=== PATIENT | female | born 1960 | race Caucasian/White ===

== ENCOUNTER 2023-03-18 15:11 | Emergency (ER) | payer BC, SELFPAY ==
--- NOTE | ~2023-03-18 | XR_ITS ---
EXAMINATION: XR KNEE, RIGHT CLINICAL INFORMATION: Reason for Exam pain COMPARISON: None TECHNIQUE: 4 views of the knee FINDINGS: No acute fracture or dislocation. Mild degenerative changes of the knee with small patellofemoral and medial compartment osteophytes.. Small suprapatellar joint effusion. Soft tissues are unremarkable. XR/XR knee RT 4V IMPRESSION: * No acute osseous abnormality. * Mild degenerative changes of the knee. Small suprapatellar joint effusion.
[2023-03-18 15:18] VITALS: BP 141/61; PULSE 77; RESP 18; TEMP 36.6; O2SAT 96; BMI 19.8
--- NOTE | 2023-03-18 15:20 | ED_ITS ---
HPI - General Adult General Chief complaint: Extremity Injury, Lower <Gaurav Schulz - Last Filed: 03/18/23 15:21> Stated complaint: hurt knee this morning @ home <Gaurav Schulz - Last Filed: 03/18/23 15:21> Time Seen by Provider: 03/18/23 15:32 <Gaurav Schulz - Last Filed: 03/18/23 15:21> History of Present Illness HPI narrative: Patient complains of right knee pain after slipping and twisting her knee while walking the dog, she felt a pop and then knee became pain There is no other injury she did not fall down there was no head injury no neck pain no back pain no numbness no weakness no tingling <GABRIELA Gonsales - Last Filed: 03/18/23 16:30> Related Data Home medications: Home Medications Medication Instructions Recorded Confirmed albuterol sulfate 90 mcg/actuation inhalation 01/29/21 04/14/22 aerosol inhaler alendronate 70 mg tablet 70 mg PO QWEEK 01/29/21 04/14/22 estradiol 0.0375 mg/24 hr transdermal 01/29/21 04/14/22 semiweekly transdermal patch nitrofurantoin 1 cap PO BID 01/29/21 04/14/22 monohydrate/macrocrystals 100 mg capsule progesterone micronized 100 mg mg PO 01/29/21 04/14/22 capsule Previous Rx's Medication Instructions Recorded azithromycin 250 mg tablet See Rx Instructions PO .COMPLEX #6 01/29/21 tabs amoxicillin 875 mg-potassium 1 tab PO BID 5 days #10 tabs 04/14/22 clavulanate 125 mg tablet cane #1 ea 03/18/23 <Gaurav Schulz - Last Filed: 03/18/23 15:21> Allergies/adverse reactions: Allergies Allergy/AdvReac Type Severity Reaction Status Date / Time ibuprofen [From MOTRIN] Allergy Severe ANAPHYLAXIS Verified 03/18/23 15:18 sulfamethoxazole Allergy Mild Vomiting Verified 03/18/23 15:18 [From Bactrim] trimethoprim [From Bactrim] Allergy Mild Vomiting Verified 03/18/23 15:18 <Gaurav Schulz - Last Filed: 03/18/23 15:21> PMFSH Past Medical History Source: nursing notes reviewed <GABRIELA Gonsales - Last Filed: 03/18/23 16:30> Social History Social History: Social History Advance Directives: No Advance Directives Information Provided: No <Gaurav Schulz - Last Filed: 03/18/23 15:21> Physical Exam ED Vital Signs: Vital Signs - 24 hr 03/18/23 15:18 Temperature 97.8 F Pulse Rate 77 Respiratory Rate 18 Blood Pressure 141/61 H Pulse Oximetry 96 Oxygen Delivery Method Room Air BMI result Body Mass Index 19.8 <Gaurav Schulz - Last Filed: 03/18/23 15:21> Vital Signs - 24 hr 03/18/23 15:18 Temperature 97.8 F Pulse Rate 77 Respiratory Rate 18 Blood Pressure 141/61 H Pulse Oximetry 96 Oxygen Delivery Method Room Air BMI result Body Mass Index 19.8 <GABRIELA Gonsales - Last Filed: 03/18/23 16:30> General appearance no distress Head is normocephalic atraumatic Neck is supple nontender The back full range of motion Respiratory no distress Extremities the right knee had lateral joint line tenderness as well as posterior tenderness, there was no obvious swelling, it extends to 180, straight leg raising is intact, no obvious ligamentous laxity, skin was normal and int act, neurovascular intact distal Other extremities normal <GABRIELA Gonsales - Last Filed: 03/18/23 16:30> Course Course Course Narrative: 63 year old female presents for evaluation of right knee pain. She was walking her dog when she believes she stepped in a hole and twisted the right knee. She remains independently ambulatory. X-ry of the right knee ordered. <Gaurav Schulz - Last Filed: 03/18/23 15:21> 63 year old female presents for evaluation of right knee pain. She was walking her dog when she believes she stepped in a hole and twisted the right knee. She remains independently ambulatory. X-ry of the right knee ordered. X-ray showed a small suprapatellar effusion as well as some evidence of osteoarthritis, no acute bony injury Patient was ambulatory with a limp and will follow with orthopedics as needed and was discharged diagnosis right knee sprain <GABRIELA Gonsales Last Filed: 03/18/23 16:30> Discharge Plan Discharge Clinical Impression: Right knee sprain <Gaurav Schulz - Last Filed: 03/18/23 15:21> Patient Disposition: Home, Self-Care <Gaurav Schulz - Last Filed: 03/18/23 15:21> Additional Instructions: X-ray did not show a broken bone It did show a little water on the knee and a little arthritis Follow with orthopedist for further evaluation It is possible you may have damaged cartilage or are muscle in the back of the leg This will often go back to baseline but if you are having continuing problems the orthopedist will evaluated further Return any time any worse condition or any concerns <Gaurav Schulz - Last Filed: 03/18/23 15:21> Prescriptions: New (DME) cane Device See Rx Instructions .Route Qty: 1 0RF Rx Instructions: As directed No Action progesterone micronized 100 mg capsule PO estradiol 0.0375 mg/24 hr patch semiweekly transdermal albuterol sulfate 90 mcg/actuation HFA aerosol inhaler inhalation alendronate 70 mg tablet 70 mg PO QWEEK nitrofurantoin monohyd/m-cryst 100 mg capsule 1 cap PO BID azithromycin 250 mg tablet See Rx Instructions PO .COMPLEX Qty: 6 0RF Rx Instructions: take 500 mg today (day 1), then 250 mg for 4 days (days 2-5) PO amoxicillin-pot clavulanate 875-125 mg tablet 1 tab PO BID 5 Days Qty: 10 0RF <Gaurav Schulz - Last Filed: 03/18/23 15:21> Referrals: Quentin Quan MD [Physician] - (Right knee sprain) <Gaurav Schulz - Last Filed: 03/18/23 15:21> Stand Alone Forms: Work/School Release <Gaurav Schulz - Last Filed: 03/18/23 15:21>
--- NOTE | 2023-03-18 15:26 | PC.NURSE ---
pt ambulatory to exam room. pt has knee brace on right knee, sts that pain is currently 8/10. no prior surgical history to knee
== END 2023-03-18 16:33 | disposition home or self-care (01) ==
PROVIDERS: Emergency Provider Emergency Medicine; PCP Nurse Practitioner Family
DX: S83.91XA Sprain of unspecified site of right knee, initial encounter (principal); X50.1XXA Overexertion from prolonged static or awkward postures, initial encounter; M25.461 Effusion, right knee; Y93.K1 Activity, walking an animal; Y92.480 Sidewalk as the place of occurrence of the external cause; Y99.9 Unspecified external cause status
CPT/HCPCS: 73564; 99283

== ENCOUNTER 2023-04-06 08:42 | Outpatient (REF) | payer BC, MEDICARE, SELFPAY ==
--- NOTE | ~2023-04-06 | XR_ITS ---
EXAMINATION: XR KNEE AP STANDING XR KNEE, RIGHT CLINICAL INFORMATION: Pain. COMPARISON: Right knee radiographs dated 03/18/2023. TECHNIQUE: AP bilateral standing view of the knees was obtained. Axial view of the right knee. FINDINGS: Bones and soft tissues are normal. No fracture or joint effusion. Alignment is anatomic. No significant varus or valgus configuration is seen bilaterally. Joint spaces are well maintained. No abnormal soft tissue calcification. XR/XR knee RT 1V IMPRESSION: Normal AP bilateral knees and right axial radiographs.
--- NOTE | ~2023-04-06 | XR_ITS ---
EXAMINATION: XR KNEE AP STANDING XR KNEE, RIGHT CLINICAL INFORMATION: Pain. COMPARISON: Right knee radiographs dated 03/18/2023. TECHNIQUE: AP bilateral standing view of the knees was obtained. Axial view of the right knee. FINDINGS: Bones and soft tissues are normal. No fracture or joint effusion. Alignment is anatomic. No significant varus or valgus configuration is seen bilaterally. Joint spaces are well maintained. No abnormal soft tissue calcification. XR/XR knee standing BI IMPRESSION: Normal AP bilateral knees and right axial radiographs.
== END 2023-04-06 08:43 | disposition home or self-care (01) ==
LOC: HO.HOSX 08:42
PROVIDERS: PCP Nurse Practitioner Family; Visit Provider Physician Assistant
DX: S83.001A Unspecified subluxation of right patella, initial encounter (principal); S86.111A Strain of other muscle(s) and tendon(s) of posterior muscle group at lower leg level, right leg, initial encounter; M17.11 Unilateral primary osteoarthritis, right knee
CPT/HCPCS: 73560; 73565

== ENCOUNTER → 2023-04-20 08:37 | Outpatient (BNVA) | payer OTHER, SELFPAY | PROVIDERS: PCP Nurse Practitioner Family; Visit Provider Physician Assistant | DX: S93.432A Sprain of tibiofibular ligament of left ankle, initial encounter (principal); W01.0XXA Fall on same level from slipping, tripping and stumbling without subsequent striking against object, initial encounter | CPT/HCPCS: 73610; 73630; 99204 ==

== ENCOUNTER → 2023-04-25 13:06 | Outpatient (BNVA) | payer OTHER, SELFPAY | PROVIDERS: PCP Nurse Practitioner Family; Visit Provider Internal Medicine | DX: S93.432A Sprain of tibiofibular ligament of left ankle, initial encounter (principal); W01.0XXA Fall on same level from slipping, tripping and stumbling without subsequent striking against object, initial encounter | CPT/HCPCS: 99213 ==

== ENCOUNTER → 2023-05-04 14:27 | Outpatient (BNVA) | payer OTHER, SELFPAY | PROVIDERS: PCP Nurse Practitioner Family; Visit Provider Internal Medicine | DX: S93.492D Sprain of other ligament of left ankle, subsequent encounter (principal); W01.0XXD Fall on same level from slipping, tripping and stumbling without subsequent striking against object, subsequent encounter | CPT/HCPCS: 99213 ==

== ENCOUNTER → 2023-05-18 08:00 | Outpatient (BNVA) | payer OTHER, SELFPAY | PROVIDERS: PCP Nurse Practitioner Family; Visit Provider Internal Medicine | DX: S93.432D Sprain of tibiofibular ligament of left ankle, subsequent encounter (principal); W01.0XXD Fall on same level from slipping, tripping and stumbling without subsequent striking against object, subsequent encounter | CPT/HCPCS: 99213 ==

== ENCOUNTER → 2023-06-05 08:00 | Outpatient (BNVA) | payer OTHER, SELFPAY | PROVIDERS: PCP Nurse Practitioner Family; Visit Provider Internal Medicine | DX: S93.432D Sprain of tibiofibular ligament of left ankle, subsequent encounter (principal); W01.0XXD Fall on same level from slipping, tripping and stumbling without subsequent striking against object, subsequent encounter | CPT/HCPCS: 99213 ==

== ENCOUNTER 2023-06-22 08:42 | Outpatient (AMB) | payer OTHER, BC, SELFPAY ==
[2023-06-22 08:45] VITALS: BMI 19.9
--- NOTE | 2023-06-22 08:45 | A.OFFVIS_ITS ---
Intake Vital Signs 06/22/23 08:45 Height 5 ft 6 in Weight 123 lb BMI 19.9 Intake Visit Reasons: New Prob - Left ankle sprain Intake Note: Imani is a 63 year old female who presents today for a evaluation for her left ankle pain, DOI 04/20/23. Patient reports slipped on water and rolled her ankle. She states her ankle is sore after physical therapy. ROM is limited per patient. Denies numbness and tingling. Allergies ibuprofen [From MOTRIN] Allergy (Severe, Verified 06/22/23 08:48) ANAPHYLAXIS sulfamethoxazole [From Bactrim] Allergy (Mild, Verified 06/22/23 08:48) Vomiting trimethoprim [From Bactrim] Allergy (Mild, Verified 06/22/23 08:48) Vomiting HPI New Prob - Left ankle sprain HPI Details 63-year-old female who presents in the office today, as a new patient, for an evaluation of left ankle pain. The patient reports on 04/20/2023 she slipped on water and roller her ankle with at school. She confirms ecchymosis. She reports she was seen at [facility] and was told she has a sprain. She confirms participating in physical therapy and states this makes her ankle sore after. She claims her ROM is limited. She denies numbness or tingling. She states her ankle does better with the [facility] velcro ankle brace. She states she is unable to kneel down or get back up due to pain in the ankle. Patient confirms an allergy to ibuprofen. She goes into anaphylaxis. 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 Review of Systems Const All systems reviewed & are unremarkable except as noted in HPI and below Physical Exam Vital Signs: BMI result Body Mass Index 19.9 Const General: cooperative, healthy appearing, comfortable, no acute distress, well developed and alert Orientation/consciousness: patient oriented x3 HEENT Head: Yes normal to inspection, Yes normocephalic and Yes atraumatic Eyes General: appearance normal, both eyes and all related structures Resp Effort & Inspection: normal respiratory effort and able to speak in complete sentences Cardio Rate: regular rate Peripheral pulses: Peripheral pulses 2+ throughout GI Palpation (GI): Soft to palpation Skin Lesions: no lesions Rashes: no rashes Neuro General: patient oriented x3 Extrem Other: Left ankle: Tenderness to palpation along the peroneal tendons. Minimal tenderness to palpation over the tibial tendons. Full ROM dorsiflexion, plantarflexion, inversion, and eversion. Sensation intact. Pedal pulse intact. Assessment & Plan Assessment & Plan (1) Left ankle sprain: Comment: Grade 2 Code(s): S93.402A - Sprain of unspecified ligament of left ankle, initial encounter Plan Ms. Robbins is a 63-year-old female who presents in the office today, as a new patient, for an evaluation of left ankle pain. The patient reports on 04/20/2023 she slipped on water and roller her ankle with at school. She confirms ecchymosis. She reports she was seen at [facility] and was told she has a sprain. She confirms participating in physical therapy and states this makes her ankle sore after. She claims her ROM is limited. She denies numbness or tingling. She states her ankle does better with the [facility] velcro ankle brace. She states she is unable to kneel down or get back up due to pain in the ankle. Patient confirms an allergy to ibuprofen. She goes into anaphylaxis. 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 I discussed the timeline for healing the ankle. She may return to activities as tolerated, using pain as her guide. If her ankle is swelling or hurting she needs to ice and elevate the ankle. She should continue to attend physical therapy for her remaining 3 weeks and to wear the brace. Follow up will be PRN, or sooner if needed. Reviewed x-rays from 04/20/2023 revealed no acute fractures or dislocation. Patient Instructions: Scribed for Daisy Montes De Oca PA-C by Bebe Madrigal certified medical assistant, on 06/22/2023 at 8:51 am, EST. Your attestation Coding Level of Care Code Est Pt Level 3 (62276) Diagnoses Left ankle sprain S93.402A
== END 2023-06-22 09:39 | disposition home or self-care (01) ==
PROVIDERS: PCP Nurse Practitioner Family; Visit Provider Physician Assistant
DX: S93.402A Sprain of unspecified ligament of left ankle, initial encounter (principal)
CPT/HCPCS: 99213

== ENCOUNTER → 2023-06-22 08:42 | Outpatient (BNVA) | payer OTHER, BC, SELFPAY | PROVIDERS: PCP Nurse Practitioner Family; Visit Provider Physician Assistant | DX: S93.402A Sprain of unspecified ligament of left ankle, initial encounter (principal); X58.XXXA Exposure to other specified factors, initial encounter; Y93.9 Activity, unspecified; Y92.9 Unspecified place or not applicable; Y99.9 Unspecified external cause status | CPT/HCPCS: 99212 ==

== ENCOUNTER → 2023-06-27 08:05 | Outpatient (BNVA) | payer OTHER, SELFPAY | PROVIDERS: PCP Nurse Practitioner Family; Visit Provider Internal Medicine | DX: S93.432D Sprain of tibiofibular ligament of left ankle, subsequent encounter (principal); W01.0XXD Fall on same level from slipping, tripping and stumbling without subsequent striking against object, subsequent encounter | CPT/HCPCS: 99213 ==

== ENCOUNTER → 2023-07-14 10:13 | Outpatient (BNVA) | payer OTHER, SELFPAY | PROVIDERS: PCP Nurse Practitioner Family; Visit Provider Physician Assistant Medical | DX: S93.402D Sprain of unspecified ligament of left ankle, subsequent encounter (principal); W01.0XXD Fall on same level from slipping, tripping and stumbling without subsequent striking against object, subsequent encounter | CPT/HCPCS: 99213 ==

== ENCOUNTER 2023-08-07 15:13 | Outpatient (AMB) | payer BC, SELFPAY ==
[2023-08-07 16:05] VITALS: BMI 21.0
--- NOTE | 2023-08-07 16:05 | AM.OFFWIN_ITS ---
Intake Vital Signs 08/07/23 16:05 08/07/23 16:08 Height 5 ft 6 in 5 ft 6 in Weight 130 lb 130 lb BMI 21.0 21.0 BP 135/75 Blood Pressure Location Lt brachial Position Sitting Pulse 78 Pulse Source Pulse Oximeter Temp 97.4 F Temp Source Temporal Artery Scan Pulse Oximetry (%) 96 Oxygen Delivery Method Room Air Intake Visit Reasons: EP Fell-Face injury Patient Tobacco Use Status: Never used Tobacco Allergies ibuprofen [From MOTRIN] Allergy (Severe, Verified 08/07/23 16:06) ANAPHYLAXIS sulfamethoxazole [From Bactrim] Allergy (Mild, Verified 08/07/23 16:06) Vomiting trimethoprim [From Bactrim] Allergy (Mild, Verified 08/07/23 16:06) Vomiting Medication List - Last Reconciled 08/07/23 by Shiraz Eckert MD albuterol sulfate 90 mcg/actuation inhalation alendronate 70 mg PO QWEEK Do you need a note to return to daycare/school/sports/work: Yes HPI EP Fell-Face injury HPI Details 63-year-old female presents to the [facility] for a sick visit. All taking the trash can out, patient accidentally tripped and fell on the handle of the can. Patient started bleeding profusely from the nose. The bleeding stopped in about 15 minutes. She presents for an evaluation. No loss of consciousness. No fevers or chills. 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 In both nostrils there is evidence of bleeding. The bridge of the nose is not tender. Head: Yes normal to inspection Eyes General: appearance normal, both eyes and all related structures Neck Neck: Yes normal visual inspection Chest Chest palpation & inspection: normal palpation of entire chest wall Resp Effort & Inspection: normal respiratory effort Neuro General: patient oriented x3 Assessment & Plan Assessment & Plan (1) Contusion, nose: Code(s): S00.33XA - Contusion of nose, initial encounter Qualifiers: Encounter type: initial encounter Qualified Code(s): S00.33XA - Contusion of nose, initial encounter Plan: X-ray images were personally reviewed by me. No fractures seen. Reassurance. Orders: Orders XR nasal bones min 3V Today S00.33XA - Contusion of nose, initial encounter Coding Level of Care Code Est Pt Level 4 (16503) Diagnoses Contusion of nose, initial encounter S00.33XA Encounter type: initial encounter
[2023-08-07 16:08] VITALS: BP 135/75; PULSE 78; TEMP 36.3; O2SAT 96; BMI 21.0
== END 2023-08-07 17:14 | disposition home or self-care (01) ==
PROVIDERS: PCP Nurse Practitioner Family; Visit Provider Internal Medicine
DX: S00.33XA Contusion of nose, initial encounter (principal)
CPT/HCPCS: 99214

== ENCOUNTER 2023-08-07 16:18 | Outpatient (REF) | payer BC, SELFPAY ==
--- NOTE | ~2023-08-07 | XR_ITS ---
EXAMINATION: XR NASAL BONES CLINICAL INFORMATION: Nasal contusion COMPARISON: None available. TECHNIQUE: 3 views of the nasal bones were obtained. FINDINGS: There are no fractures. Visualized paranasal sinuses appear unremarkable without air-fluid levels. No bone, joint or soft tissue abnormality is demonstrated. XR/XR nasal bones min 3V IMPRESSION: Unremarkable examination.
== END 2023-08-07 16:19 | disposition home or self-care (01) ==
LOC: HO.HMGCX 16:18
PROVIDERS: PCP Nurse Practitioner Family; Visit Provider Internal Medicine
DX: S00.33XA Contusion of nose, initial encounter (principal); X58.XXXA Exposure to other specified factors, initial encounter; Y93.9 Activity, unspecified; Y92.9 Unspecified place or not applicable; Y99.9 Unspecified external cause status
CPT/HCPCS: 70160

== ENCOUNTER 2023-11-06 15:03 | Outpatient (AMB) | payer BC, SELFPAY ==
--- NOTE | 2023-11-06 15:19 | MHC.OFFWIV ---
Intake Vital Signs 11/06/23 15:20 Height 5 ft 6 in Weight 59.421 kg BMI 21.1 BP 126/80 Blood Pressure Location Rt brachial Position Sitting Pulse 90 Pulse Source Pulse Oximeter Temp 97.8 F Temp Source Temporal Artery Scan Pulse Oximetry (%) 98 Oxygen Delivery Method Room Air Intake Visit Reasons: EST/head aches shortness of breath/lobby masked Intake Note: ptis here today for head aches, shortness of breath started thanksgiving Patient Tobacco Use Status: Never used Tobacco Allergies ibuprofen [From MOTRIN] Allergy (Severe, Verified 11/06/23 15:20) ANAPHYLAXIS sulfamethoxazole [From Bactrim] Allergy (Mild, Verified 11/06/23 15:20) Vomiting trimethoprim [From Bactrim] Allergy (Mild, Verified 11/06/23 15:20) Vomiting Do you need a note to return to daycare/school/sports/work: Yes HPI HPI Comments History of Present Illness Details 31-year-old who presents with fatigue, malaise, myalgias, cough, shortness of breath, headaches,, subjective fevers and chills that started about 2-3 weeks ago .? No known sick contacts.? Denies chest pain, shortness of breath, nausea, vomiting, abdominal pain, headache vision change, dizziness, weakness, changes in bowel or urinary habits Physical exam benign History and physical exam concerning for viral illness versus bronchitis ( most likely) versus flu versus COVID versus RSV.? Unlikely pneumonia, ACS, dissection, pulmonary embolism, acute respiratory distress. Unlikely meningitis, encephalitis, intracranial hemorrhage, stroke or posterior stroke I do not suspect acute CHF. Plan at this time viral testing will discharge patient home with albuterol, atbx, prednison. .? Educated patient on diagnosis and treatment plan, answered all question, patient verbalizes understanding.? At this time patient will be discharged home, advised to return with new or worsening symptoms.? Educated on worrisome signs and symptoms and when to return.? At this time I feel comfortable discharge home. 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 Review of Systems Const Details: Constitutional : No Weight loss, + Fever, + Chills, + Fatigue, + Malaise ENT/Mouth : No sore throat, No Rhinorrhea Eyes: No Eye Pain, No Swelling, No Redness Cardiovascular : No Chest Pain, No SOB, No Dyspnea on Exertion, No Orthopnea, No Edema, No Palpitations Respiratory : + Cough, No Sputum, No Wheezing Gastrointestinal : No Nausea, No Vomiting, No Diarrhea, No Constipation, No abdominal Pain, No Hematochezia, No Melena Genitourinary : No Dysuria, No Urinary Frequency, No Hematuria, Musculoskeletal : No joint pain, No Myalgias, No Joint Swelling Skin : No Skin Lesions, No rash Neuro : No Weakness, No Numbness, No Dizziness, + Headache Psych : No Anxiety/Panic, No Depression All other systems reviewed and are negative All systems reviewed & are unremarkable except as noted in HPI and below Physical Exam Vital Signs: Last Vital Signs Temp 97.8 F 11/06/23 15:20 Pulse 90 11/06/23 15:20 BP 126/80 11/06/23 15:20 Pulse Ox 98 11/06/23 15:20 Oxygen Delivery Method Room Air 11/06/23 15:20 BMI result Body Mass Index 21.1 vss Appearance: Alert.? Oriented X3.? No acute distress.? Head: Normocephalic, atraumatic, no step-offs or deformities Eyes: Pupils equal, round and reactive to light.? CVS: Normal heart rate and rhythm.? Pulses normal.? Respiratory: No respiratory distress.? Breath sounds normal.? Abdomen: Soft and nontender.? Skin: Skin warm and dry.? Normal skin color.? Normal skin turgor.? Extremities: No lower extremity edema.? No calf ttp. 5/5 strength to bilateral upper and lower extremities Neuro: Oriented X 3.? No motor deficit.? No sensory deficit. CN 2-12 intact Assessment & Plan Assessment & Plan (1) Bronchitis: Code(s): J40 - Bronchitis, not specified as acute or chronic Plan Take your medications as prescribed. If you were prescribed antibiotics today, it is important that you take your medication to their entirety, do not skip any doses, do not finish them early. Follow-up with your primary care provider this week. Return to the emergency department with new or worsening symptoms. Such as fevers, chills, chest pain, shortness of breath, nausea, vomiting, dizziness, headache, vision changes, lethargy In case of emergency call 911 Orders: Orders SARS-CoV2/FLU/RSV Today B34.9 - Viral infection, unspecified Medications: New doxycycline hyclate 100 mg PO BID 14 caps 0RF 7 days albuterol sulfate 90 mcg/actuation 2 puffs inhalation Q6H PRN 6.7 grams 0RF shortness of breath or wheezing prednisone 20 mg PO DAILY 5 tabs 0RF 5 days Coding Level of Care Code Est Pt Level 3 (29348) Diagnoses Bronchitis J40
[2023-11-06 15:20] VITALS: BP 126/80; PULSE 90; TEMP 36.6; O2SAT 98; BMI 21.1
== END 2023-11-06 15:38 | disposition home or self-care (01) ==
PROVIDERS: PCP Nurse Practitioner Family; Visit Provider Physician Assistant
DX: J40 Bronchitis, not specified as acute or chronic (principal)
CPT/HCPCS: 99213

== ENCOUNTER 2023-11-06 15:46 | Outpatient (REF) | payer BC, SELFPAY ==
[2023-11-07 12:28] LABS: Influenza A PCR NEGATIVE (Negative); Influenza B PCR NEGATIVE (Negative); Resp Syncy Virus RNA Qual PCR NEGATIVE (Negative); SARS COV2 PCR INHOUSE NEGATIVE (Negative)
== END 2023-11-06 15:47 | disposition home or self-care (01) ==
LOC: HO.LAB 15:46
PROVIDERS: Visit Provider Physician Assistant
DX: Z11.52 Encounter for screening for COVID-19 (principal); Z20.822 Contact with and (suspected) exposure to COVID-19; B34.9 Viral infection, unspecified
CPT/HCPCS: 0241U

== ENCOUNTER 2024-01-02 09:25 | Outpatient (AMB) | payer BC, SELFPAY ==
--- NOTE | 2024-01-02 10:50 | MHC.OFFWIV ---
Intake Vital Signs 01/02/24 10:52 Height 5 ft 6 in Weight 133 lb 4 oz BMI 21.5 BP 132/74 Blood Pressure Location Rt brachial Position Sitting Pulse 97 Pulse Source Pulse Oximeter Temp 97.6 F Temp Source Oral Pulse Oximetry (%) 100 Oxygen Delivery Method Room Air Intake Visit Reasons: EP fever chills body rash [id number] Intake Note: Pt is here c/o post covid symptoms. Pt test positive 12/22/23, since then pt was better but has now developed fevers, shivers, on going cough and a rash. Pt states the rash has gone away but the cough is the same. Patient Tobacco Use Status: Never used Tobacco Allergies ibuprofen [From MOTRIN] Allergy (Severe, Verified 01/05/24 16:05) ANAPHYLAXIS sulfamethoxazole [From Bactrim] Allergy (Mild, Verified 01/05/24 16:05) Vomiting trimethoprim [From Bactrim] Allergy (Mild, Verified 01/05/24 16:05) Vomiting Medication List - Last Reconciled 01/05/24 by Shiraz Eckert MD albuterol sulfate 90 mcg/actuation inhalation albuterol sulfate 90 mcg/actuation 2 puffs inhalation Q6H PRN alendronate 70 mg PO QWEEK benzonatate 100 mg PO BID-TID PRN prednisone 20 mg PO BID Do you need a note to return to daycare/school/sports/work: Yes HPI EP fever chills body rash [id number] HPI Details Patient presents for a sick visit. Reporting symptoms of sinus congestion, sore throat and difficulty swallowing. Low-grade fever. No family member is sick. No recent travel. Patient reports symptoms of malaise and fatigue. HPI Comments History of Present Illness Details Patient is a 63-year-old female in today for a sick visit. She states that she tested positive for COVID 2 weeks ago. She reports intermittent fever and chills, cough, sore throat, chest congestion. She states that the fever and chills have resided however the cough and chest congestion remain. She has used wdvk-str-fgejhoy medicine with little effect. 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 Denies nausea, vomiting, diarrhea, chest pain, shortness a breath, dyspnea on exertion. 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 Oriented X3.? No acute distress.? Head: Normocephalic, atraumatic, Eyes: Pupils equal, round and reactive to light.? ENT: Pharynx erythema.?TM intact and pearly medina. Neck: Normal inspection.? Neck supple.?Full ROM. CVS: Normal heart rate and rhythm.? Pulses normal.? Respiratory: No respiratory distress.? Slight wheeze upper lobes bialterally. Neuro: Oriented X 3.? No motor deficit.? No sensory deficit. CN 2-12 intact General: cooperative and healthy appearing Nutritional Appearance: well nourished Orientation/consciousness: patient oriented x3 Limitations: no limitations HEENT Head: Yes normal to inspection Eyes General: appearance normal, both eyes and all related structures Neck Neck: Yes normal visual inspection Chest Chest palpation & inspection: normal palpation of entire chest wall Resp Effort & Inspection: normal respiratory effort Neuro General: patient oriented x3 Assessment & Plan Assessment & Plan (1) Upper respiratory infection: Comment: Will obtain upper respiratory swab. Will give patient prednisone and benzonatate to be taken as directed. Patient has been educated on signs of worsening symptoms when to report back to the walk-in or when to present to the ED. Patient states she understands. Code(s): J06.9 - Acute upper respiratory infection, unspecified Qualifiers: URI type: unspecified URI Qualified Code(s): J06.9 - Acute upper respiratory infection, unspecified Plan: Increase fluid intake. Tylenol for aches and pains. If symptoms worsen, follow-up here for a recheck. Plan Follow-up with PCP. Orders: Orders SARS-CoV2/FLU/RSV 01/02/24 J06.9 - Acute upper respiratory infection, unspecified Complete Blood Count Auto Diff 01/02/24 Z13.0 - Encounter for screening for diseases of the blood and blood-forming organs and certain disorders involving the immune mechanism XR chest 2V 01/02/24 R05.9 - Cough, unspecified Comprehensive Met. Panel 01/02/24 Z91.89 - Other specified personal risk factors, not elsewhere classified Medications: New prednisone 20 mg PO BID 10 tabs 0RF benzonatate 100 mg PO BID-TID PRN 30 caps 0RF cough Coding Level of Care Code Est Pt Level 3 (43036) Diagnoses Upper respiratory tract infection, unspecified type J06.9 URI type: unspecified URI
[2024-01-02 10:52] VITALS: BP 132/74; PULSE 97; TEMP 36.4; O2SAT 100; BMI 21.5
== END 2024-01-02 12:25 | disposition home or self-care (01) ==
PROVIDERS: PCP Nurse Practitioner Family; Visit Provider Nurse Practitioner Primary Care
DX: J06.9 Acute upper respiratory infection, unspecified (principal)
CPT/HCPCS: 99214

== ENCOUNTER 2024-01-02 11:26 | Outpatient (REF) | payer BC, SELFPAY ==
--- NOTE | ~2024-01-02 | XR_ITS ---
EXAMINATION: XR CHEST 2 VIEW CLINICAL INFORMATION: Cough COMPARISON: None TECHNIQUE: PA and lateral views of the chest obtained. FINDINGS: The lungs are hyperinflated. There are coarse subpleural opacities in the right and to a lesser extent left apex. No pleural effusions are evident. The cardiomediastinal silhouette is not enlarged. XR/XR chest 2V IMPRESSION: 1. Hyperinflation with lucency in the upper lung zones indicative of underlying COPD. 2. Coarse biapical opacities most likely reflect scar. However, given underlying emphysematous changes, CT might be of benefit to better assess both the apical findings and exclude occult bronchogenic carcinoma..
[2024-01-02 13:28] LABS: MANUAL DIFF FLAG NO
[2024-01-02 13:32] LABS: Basophils Percent Auto 0.6 % (0-2); Eosinophils Absolute Auto 0.1 X10*3/uL (0.0-0.4); Eosinophils Percent Auto 1.8 % (0-4); Hematocrit 40.1 % (37.0-47.0); Hemoglobin 12.8 g/dl (12.0-16.0); Lymphocytes Absolute Auto 1.8 X10*3/uL (1.2-4.9); Lymphocytes Percent Auto 25.9 % (20-40); Mean Corpuscular HGB Conc 31.9 g/dl (31.0-35.0); Mean Corpuscular Hemoglobin 27.7 pg (27.0-33.0); Mean Corpuscular Volume 86.8 fL (80.0-98.0); Mean Platelet Volume 10.5 fL (9.4-12.3); Monocytes Absolute Auto 0.4 X10*3/uL (0.1-1.2); Monocytes Percent Auto 5.7 % (2-11); Neutrophils Absolute Auto 4.7 x10*3/uL (2.0-8.3); Platelet Count 267 X10*3/uL (160-400); Red Blood Count 4.62 X10*6/uL (4.20-5.50); Red Cell Distribution Width 14.1 % (11.0-16.0); White Blood Count 7.1 X10*3/uL (4.8-10.8)
[2024-01-02 14:11] LABS: Alanine Aminotransferase 21 U/L (0-31); Albumin Level 4.2 g/dL (3.5-5.0); Alkaline Phosphatase 82 U/L (39-117); Anion Gap 14 (12-20); Aspartate Amino Transferase 24 U/L (5-31); Bilirubin Total 0.3 mg/dL (0.0-1.0); Blood Urea Nitrogen 11 mg/dL (9-16); Calcium 9.2 mg/dL (8.4-10.2); Carbon Dioxide 26 mmol/L (22-29); Chloride 105 mmol/L (96-108); Estimated Glomerular Filt Rate > 60; Glucose Random 99 mg/dL (60-115); Potassium 4.3 mmol/L (3.3-5.1); Sodium 141 mmol/L (135-145); Total Protein 7.1 g/dL (6.5-8.0)
[2024-01-02 14:57] LABS: Influenza A PCR NEGATIVE (Negative); Influenza B PCR NEGATIVE (Negative); Resp Syncy Virus RNA Qual PCR NEGATIVE (Negative); SARS COV2 PCR INHOUSE NEGATIVE (Negative)
== END 2024-01-02 11:27 | disposition home or self-care (01) ==
LOC: HO.HMGCX 11:26
PROVIDERS: PCP Nurse Practitioner Family; Visit Provider Nurse Practitioner Primary Care
DX: Z13.0 Encounter for screening for diseases of the blood and blood-forming organs and certain disorders involving the immune mechanism (principal); Z11.52 Encounter for screening for COVID-19; R05.9 Cough, unspecified; J06.9 Acute upper respiratory infection, unspecified; Z91.89 Other specified personal risk factors, not elsewhere classified
CPT/HCPCS: 0241U; 36415; 71046; 80053; 85025

== ENCOUNTER 2024-10-30 05:15 | Emergency (ER) | payer BC, SELFPAY ==
--- NOTE | ~2024-10-30 | XR_ITS ---
EXAMINATION: XR CHEST CLINICAL INFORMATION: Chest pain. COMPARISON: 01/02/2024 TECHNIQUE: 2 views of the chest were obtained. FINDINGS: Lungs remain hyperinflated. Persistent bilateral coarse interstitial opacities particularly in the lung apices redemonstrated. Heart size is normal. S-shaped thoracolumbar scoliosis with multilevel degenerative changes. No significant pleural effusion. No new focal consolidation. XR/XR chest 2V IMPRESSION: Persistent bilateral coarse interstitial opacities particularly in the lung apices redemonstrated. This study was presented today October 30, 2024 for interpretation. Stat results provided at this time as requested by referring provider. Electronically signed by: Queenie Sherwood MD 10/30/2024 08:48 AM NADIYA
[2024-10-30 05:26] VITALS: BP 143/75; PULSE 75; RESP 16; TEMP 36.4; O2SAT 100; BMI 21.4
--- NOTE | 2024-10-30 05:29 | ECG_ITS ---
Test Reason : CHEST PAIN Blood Pressure : / mmHG Vent. Rate : 075 BPM Atrial Rate : 075 BPM P-R Int : 144 ms QRS Dur : 074 ms QT Int : 384 ms P-R-T Axes : 067 071 035 degrees QTc Int : 428 ms Normal sinus rhythm Possible Left atrial enlargement Cannot rule out Anterior infarct , age undetermined Abnormal ECG No previous ECGs available Referred By: Generic ED Physician Electronically Signed By:Chente Loving
[2024-10-30 06:00] LABS: Basophils Percent Auto 0.6 % (0-2); Eosinophils Absolute Auto 0.1 X10*3/uL (0.0-0.4); Eosinophils Percent Auto 1.1 % (0-4); Hematocrit 38.1 % (37.0-47.0); Hemoglobin 12.4 g/dl (12.0-16.0); Imm Gran Abs Auto 0.02 X10*3/uL (0.00-0.03); Imm Gran Pct Auto 0.4 % (0.0-0.4); Lymphocytes Percent Auto 22.2 % (20-40); MANUAL DIFF FLAG NO; Mean Corpuscular HGB Conc 32.5 g/dl (31.0-35.0); Mean Corpuscular Hemoglobin 28.3 pg (27.0-33.0); Mean Platelet Volume 9.6 fL (9.4-12.3); Monocytes Absolute Auto 0.3 X10*3/uL (0.1-1.2); Monocytes Percent Auto 5.8 % (2-11); Neutrophils Absolute Auto 3.2 x10*3/uL (2.0-8.3); Neutrophils Percent Auto 69.9 % (45-73); Platelet Count 246 X10*3/uL (160-400); Red Blood Count 4.38 X10*6/uL (4.20-5.50); Red Cell Distribution Width 14.2 % (11.0-16.0); White Blood Count 4.6 X10*3/uL (4.8-10.8)
[2024-10-30 06:12] LABS: COVID-19 Test Negative (Negative); IDNOW Serial# 152EDE1D
[2024-10-30 06:13] LABS: IDNOW Serial# 08D9AD1C; Influenza A Negative (Negative); Influenza B2 Negative (Negative)
[2024-10-30 06:18] LABS: Alanine Aminotransferase 21 U/L (0-31); Albumin Level 3.9 g/dL (3.5-5.0); Alkaline Phosphatase 67 U/L (39-117); Anion Gap 11 (12-20); Aspartate Amino Transferase 28 U/L (5-31); Bilirubin Total 0.4 mg/dL (0.0-1.0); Blood Urea Nitrogen 10 mg/dL (9-16); Calcium 8.9 mg/dL (8.4-10.2); Carbon Dioxide 25 mmol/L (22-29); Chloride 109 mmol/L (96-108); Estimated Glomerular Filt Rate > 60; Glucose Random 103 mg/dL (60-115); Potassium 3.8 mmol/L (3.3-5.1); Sodium 141 mmol/L (135-145); Total Protein 6.5 g/dL (6.5-8.0)
[2024-10-30 06:22] LABS: Troponin-I High Sensitivity < 2.7 ng/L (<3.5-17.0)
--- NOTE | 2024-10-30 07:15 | ED_ITS ---
HPI - General Adult General Chief complaint: Dyspnea Stated complaint: headache/ SOB Time Seen by Provider: 10/30/24 06:32 Source: patient, RN notes reviewed and old records reviewed Mode of arrival: ambulatory History of Present Illness ED Provider: Kelly Muro PA-C HPI narrative: 64-year-old female with no significant past medical history presenting to the ED complaining of intermittent headache x4 days with productive cough, SOB, chest discomfort with coughing. Admits to post-tussive emesis & nonbloody diarrhea x today. denies taking any medication today. Denies recent travel, suspicious food intake, fever, chills, vision change or loss, abdominal pain, dysuria/hematuria. 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 Related Data Home Medications ?Medication ?Instructions ?Recorded ?Confirmed albuterol sulfate 90 mcg/actuation inhalation 01/29/21 08/07/23 aerosol inhaler alendronate 70 mg tablet 70 mg PO QWEEK 01/29/21 08/07/23 Previous Rx's ?Medication ?Instructions ?Recorded albuterol sulfate 90 mcg/actuation 2 puff inhalation Q6H PRN 11/06/23 aerosol inhaler shortness of breath or wheezing #6.7 grams benzonatate 100 mg capsule 100 mg PO BID-TID PRN cough #30 01/02/24 caps prednisone 20 mg tablet 20 mg PO BID #10 tabs 01/02/24 [id number]-[id number] 1 cap PO Q4-6H PRN headache #10 10/30/24 50 mg-300 mg-40 mg capsule caps (Fioricet) Allergies Allergy/AdvReac Type Severity Reaction Status Date / Time ibuprofen [From MOTRIN] Allergy Severe ANAPHYLAXIS Verified 10/30/24 05:27 sulfamethoxazole Allergy Mild Vomiting Verified 10/30/24 05:27 [From Bactrim] trimethoprim [From Bactrim] Allergy Mild Vomiting Verified 10/30/24 05:27 Review of Systems 2 Review of Systems: Yes all other systems are reviewed and are negative Constitutional: Constitutional: Reports as per HPI Neurologic: Denies Abnormal speech present [facility] Past Medical History Attestation statement: The following information was validated with the patient. 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 Physical Exam ED Vital Signs: Vital Signs - 24 hr 10/30/24 05:26 Temperature 97.5 F Pulse Rate 75 Respiratory Rate 16 Blood Pressure 143/75 H Pulse Oximetry 100 Oxygen Delivery Method Room Air BMI result Body Mass Index 21.4 Const General: cooperative, healthy appearing and no acute distress Orientation/consciousness: patient oriented x3 Limitations: no limitations HENMT Head: Yes normal to inspection and Yes atraumatic Ears: hearing grossly normal bilaterally General nose exam: Normal external nose present Face and sinus: Yes normal facial exam Mouth: Normal oral and palatal mucosa present and no drooling Throat: Yes posterior oropharynx normal, Yes tonsils normal and Yes uvula midline Eyes General: appearance normal, both eyes and all related structures Pupils: Equal, round and reactive pupils present EOM: EOMs intact bilaterally Neck Neck: Yes normal visual inspection and Yes no meningeal signs Resp Effort & Inspection: normal respiratory effort and no respiratory distress Auscultation: clear to auscultation bilaterally Cardio Rate: regular rate Heart sounds: S1 normal heart sound present and S2 normal heart sound present GI Inspection: Yes normal to inspection Palpation (GI): Soft to palpation, nontender, no guarding and not rigid Skin Rashes: no rashes Wounds: no wounds Neuro General: patient oriented x3, gait normal, tone normal, moves all extremities, no meningeal signs, no focal motor deficits and CN's II-XI intact bilaterally Cranial nerves: Yes CN's II-XII intact bilaterally, Yes Equal, round and reactive pupils present and Yes Bilaterally intact EOM present Cognition (Neuro): normal cognition Speech: No Abnormal speech present Gait exam (Neuro): Normal gait present Motor exam (neuro): 5/5 motor strength present throughout Extrem General: Yes normal to inspection and Yes no pedal edema Course Course Course Narrative: -[id number]-- labs reassuring. Troponin negative. Viral studies negative XR chest 2V IMPRESSION: Persistent bilateral coarse interstitial opacities particularly in the lung apices redemonstrated. This study was presented today October 30, 2024 for interpretation. Stat results provided at this time as requested by referring provider. > x-ray findings unchanged from 12/2023. Patient states she did have follow-up CT after the initial x-ray which did not show any alarming signs 904-- patient reports symptomatic improvement after medications given in the ED. Feels safe for discharge home at this time Results discussed with patient including worrisome signs and symptoms and strict return precautions, and when to return to the emergency department. They verbalized understanding and feel safe for discharge at this time. Medications Administered Discontinued Medications Generic Name Dose Route Start Last Admin Trade Name Oziel PRN Reason Stop Dose Admin Acetaminophen/Butalbital/Caffeine 1 tab 10/30/24 06:51 10/30/24 08:19 Butalb/Acetamin/Caff 50/325/40 Tablet PO 10/30/24 06:52 1 tab ONCE ONE Administration Ondansetron HCl 4 mg 10/30/24 06:51 10/30/24 08:20 Ondansetron Odt 4 Mg Tab.Rapdis TRANSLINGU 10/30/24 06:52 4 mg ONCE ONE Administration Medical Decision Making Medical Decision Making [facility] Narrative: 64-year-old female with no significant past medical history presenting to the ED complaining of intermittent headache x4 days with productive cough, SOB, chest discomfort with coughing. Admits to post-tussive emesis & nonbloody diarrhea x today. On exam vital signs stable, NAD, nontoxic appearing, talking in complete sentences, lungs CTA, abdomen soft/ nontender. No focal neuro deficits. Concern for viral illness vs bronchitis vs pneumonia vs gastroenteritis. Rule out metabolic abnormalities. Low suspicion for ICH/ meningitis /encephalitis or ACS/ PE. Unlikely CHF. Low suspicion for intra- abdominal pathology including appendicitis / diverticulitis with nontender abdomen plan: EKG, labs, viral testing, CXR, pain medication, antiemetic, re-evaluate Please refer to course for remaining clinical decision making, interpretation of labs/imaging results, and discussions with consultants and/or family members. Differential Diagnosis Differential Diagnoses: The differential diagnosis associated with the presentation includes As above Admission/Observation Consideration of admission/observation: Escalation of care including admission/observation considered Lab Data [facility] Lab Attestation statement: I reviewed the patient's lab results. 10/30/24 05:53 10/30/24 05:53 Labs: Lab Results 10/30/24 Range/Units 05:53 WBC 4.6 L (4.8-10.8) X10*3/uL RBC 4.38 (4.20-5.50) X10*6/uL Hgb 12.4 (12.0-16.0) g/dl Hct 38.1 (37.0-47.0) % MCV 87.0 (80.0-98.0) fL MCH 28.3 (27.0-33.0) pg MCHC 32.5 (31.0-35.0) g/dl RDW 14.2 (11.0-16.0) % Plt Count 246 (160-400) X10*3/uL MPV 9.6 (9.4-12.3) fL Immature Gran % (Auto) 0.4 (0.0-0.4) % Neut % (Auto) 69.9 (45-73) % Lymph % (Auto) 22.2 (20-40) % Stanly % (Auto) 5.8 (2-11) % Eos % (Auto) 1.1 (0-4) % Baso % (Auto) 0.6 (0-2) % Lymph # (Auto) 1.0 L (1.2-4.9) X10*3/uL Stanly # (Auto) 0.3 (0.1-1.2) X10*3/uL Eos # (Auto) 0.1 (0.0-0.4) X10*3/uL Baso # (Auto) 0.0 (0.0-0.2) X10*3/uL Abs Immat Gran (auto) 0.02 (0.00-0.03) X10*3/uL Absolute Neuts (auto) 3.2 (2.0-8.3) x10*3/uL Absolute Nucleated RBC 0.000 (0.0-0.012) X10*3/uL Nucleated RBC % (auto) 0.0 (0.0-0.2) /100WBC Sodium 141 (135-145) mmol/L Potassium 3.8 (3.3-5.1) mmol/L Chloride 109 H (96-108) mmol/L Carbon Dioxide 25 (22-29) mmol/L Anion Gap 11 L (12-20) BUN 10 (9-16) mg/dL Creatinine 0.75 (0.5-1.4) mg/dL Estim Creat Clear Calc 69.0 Estimated GFR > 60 Random Glucose 103 (60-115) mg/dL Calcium 8.9 (8.4-10.2) mg/dL Magnesium 2.1 (1.6-2.6) mg/dL Total Bilirubin 0.4 (0.0-1.0) mg/dL AST 28 (5-31) U/L ALT 21 (0-31) U/L Alkaline Phosphatase 67 (39-117) U/L Troponin I High Sens < 2.7 (<3.5-17.0) ng/L Total Protein 6.5 (6.5-8.0) g/dL Albumin 3.9 (3.5-5.0) g/dL COVID-19 (TUCKER) Negative (Negative) COVID-19 Clin Com See Note Influenza Type A (LIO) Negative (Negative) Influenza Type B (LIO) Negative (Negative) Influenza A & B Note See Note Independent Interpretation I performed an independent interpretation of an: EKG ( my interpretation EKG normal sinus rhythm rate of 75. TN interval 144. QTC 428. No STEMI. No previous to compare) and Plain X-Ray Radiology Impression Discussion of test interpretation with radiology: I have reviewed the radiologist's reading. Independent Historian Clinical information obtained from an independent historian. History obtained from or confirmed by: Other ( daughter) External Record Review External record reviewed: Inpatient record, Office record, Outpatient record, Prior outpatient labs, Prior outpatient radiology, Primary care record and Outside ED record Tests considered The following testing was considered but not selected: As above Prescription Management I considered prescription management with: Pain Medication Chronic Conditions Patient?s care impacted by: Other Social Determinants Patient?s care significantly limited by Social Determinants of Health including: Other Social Determinant of Health Discharge Plan Discharge Clinical Impression: Acute viral syndrome Patient Disposition: Home, Self-Care Instructions: Viral Syndrome (ED) Additional Instructions: your blood work and imaging studies are reassuring Fioricet is a combination headache medication, please only take when headache is severe. Be aware Fioricet has Tylenol mixed in, do not exceed 4 g in 1 day In addition you may take ibuprofen Follow up with her doctor If symptoms persist or worsen you constant worsening headache, chest pain, shortness of breath, fever please return to the ED Prescriptions: New xdhbmstfxq-lssapmlordcsa-bxau [Fioricet] 50-300-40 mg capsule 1 cap PO Q4-6H PRN (Reason: headache) Qty: 10 0RF No Action albuterol sulfate 90 mcg/actuation HFA aerosol inhaler inhalation alendronate 70 mg tablet 70 mg PO QWEEK prednisone 20 mg tablet 20 mg PO BID Qty: 10 0RF benzonatate 100 mg capsule 100 mg PO BID-TID PRN (Reason: cough) Qty: 30 0RF albuterol sulfate 90 mcg/actuation HFA aerosol inhaler 2 puff inhalation Q6H PRN (Reason: shortness of breath or wheezing) Qty: 6.7 0RF Referrals: Jud Martinez MD [Primary Care Provider] - 5 days Stand Alone Forms: Work/School Release Print Language: Kiswahili
[2024-10-30 07:32] LABS: Magnesium 2.1 mg/dL (1.6-2.6)
[2024-10-30] MEDS: Butalb/Acetamin/Caff 50/325/40 TABLET 1 TAB PO (08:19)
[2024-10-30] MEDS: Ondansetron ODT 4 MG TAB.RAPDIS TRANSLINGU (08:20)
[2024-10-30 10:00] VITALS: BP 136/80; PULSE 70; RESP 16; TEMP 36.6; O2SAT 100
[2024-10-30 10:37] VITALS: BP 136/80; PULSE 70; RESP 16; TEMP 36.6; O2SAT 100
== END 2024-10-30 10:37 | disposition home or self-care (01) ==
PROVIDERS: Physician Assistant; Emergency Provider Emergency Medicine; PCP Student in an Organized Health Care Education/Training Program
DX: B34.9 Viral infection, unspecified (principal); R51.9 Headache, unspecified; R05.9 Cough, unspecified; R06.02 Shortness of breath; Z03.818 Encounter for observation for suspected exposure to other biological agents ruled out
CPT/HCPCS: 71046; 80053; 83735; 84484; 85025; 87502; 87635; 93005; 99284; 99285

== ENCOUNTER → 2024-10-30 05:29 | Outpatient (BNV) | payer BC, SELFPAY | PROVIDERS: Emergency Provider Emergency Medicine; PCP Student in an Organized Health Care Education/Training Program; Visit Provider Internal Medicine Cardiovascular Disease | DX: R07.9 Chest pain, unspecified (principal); R94.31 Abnormal electrocardiogram [ECG] [EKG] | CPT/HCPCS: 93010 ==

== ENCOUNTER 2025-10-12 09:36 | Emergency (ER) | payer BC, SELFPAY ==
--- NOTE | 2025-10-12 | ECG_ITS ---
Test Reason : FERMÍN Blood Pressure : */* mmHG Vent. Rate : 85 BPM Atrial Rate : 85 BPM P-R Int : 142 ms QRS Dur : 78 ms QT Int : 376 ms P-R-T Axes : 76 78 22 degrees QTcB Int : 447 ms Normal sinus rhythm Possible Left atrial enlargement Cannot rule out Anterior infarct (cited on or before 30-Oct-2024) , could be related to body habitus and lead placement Abnormal ECG When compared with ECG of 30-Oct-2024 05:26, No significant change was found Referred By: Generic ED Physician Electronically Signed By: EMILY PERES
--- NOTE | ~2025-10-12 | XR_ITS ---
CLINICAL HISTORY: chest pain 2 view chest x-ray. Comparison: CR/SR - XR CHEST 2 VIEWS - 01/02/24 11:45 EST Findings: Stable increased lung volumes. Lungs are clear. No pneumothorax or pleural effusion. Heart size normal. No passive venous congestion. No midline shift or tracheal deviation. No acute fracture. Scoliosis Impression: 1. Stable hyperinflated lungs. This document has been electronically signed by: Allan Carreon MD on 10/12/2025 12:31:00
[2025-10-12 09:47] VITALS: BP 129/65; PULSE 81; RESP 18; TEMP 36.3; O2SAT 99; BMI 21.0
[2025-10-12 10:00] VITALS: BP 134/61; PULSE 71; RESP 18; TEMP 36.4; O2SAT 98
[2025-10-12 10:12] LABS: MANUAL DIFF FLAG NO
[2025-10-12 10:17] LABS: Hematocrit 38.3 % (37.0-47.0); Hemoglobin 12.5 g/dl (12.0-16.0); Imm Gran Abs Auto 0.01 X10*3/uL (0.00-0.03); Imm Gran Pct Auto 0.2 % (0.0-0.4); Lymphocytes Absolute Auto 1.7 X10*3/uL (1.2-4.9); Mean Corpuscular HGB Conc 32.6 g/dl (31.0-35.0); Mean Corpuscular Hemoglobin 29.1 pg (27.0-33.0); Mean Corpuscular Volume 89.1 fL (80.0-98.0); NRBC Abs Auto 0.000 X10*3/uL (0.0-0.012); NRBC Pct Auto 0.0 /100WBC (0.0-0.2); Platelet Count 227 X10*3/uL (160-400); Red Blood Count 4.30 X10*6/uL (4.20-5.50); White Blood Count 5.5 X10*3/uL (4.8-10.8)
[2025-10-12 10:30] LABS: Anion Gap 12 (12-20); Blood Urea Nitrogen 14 mg/dL (9-16); Calcium 9.2 mg/dL (8.4-10.2); Carbon Dioxide 24 mmol/L (22-29); Chloride 108 mmol/L (96-108); Creatinine Clr Calc Pharmacy 64.2; Estimated Glomerular Filt Rate > 60; Potassium 4.4 mmol/L (3.3-5.1); Sodium 140 mmol/L (135-145)
[2025-10-12 10:40] LABS: Troponin-I High Sensitivity < 2.7 ng/L (<3.5-17.0)
--- NOTE | 2025-10-12 10:43 | ED_ITS ---
HPI - Chest Pain General Chief Complaint: Chest Pain Stated Complaint: chest pain Time Seen by Provider: 10/12/25 10:43 Source: patient Mode of arrival: ambulatory Limitations: no limitations History of Present Illness ED Provider: HPI narrative: 65-year-old woman presenting with midsternal chest discomfort for the past 6 days, she states she feels it right over the bones when she presses down on her chest, when she takes a deep breath she also feels it is over her bones, started after she had a GI bug, this is not pain radiating to the back, not associated with nausea or vomiting or diaphoresis, nonsmoker nondrinker no drug use. No fevers or chills Related Data Home Medications ?Medication ?Instructions ?Recorded ?Confirmed albuterol sulfate 90 mcg/actuation inhalation 01/29/21 08/07/23 aerosol inhaler alendronate 70 mg tablet 70 mg PO QWEEK 01/29/2107/28 Previous Rx's ?Medication ?Instructions ?Recorded albuterol sulfate 90 mcg/actuation 2 puff inhalation Q 6H PRN 11/06/23 aerosol inhaler shortness of breath or wheez ing #6.7 grams benzonatate 100 mg capsule 100 mg PO BID-TID PRN cough #30 01/02/24 caps prednisone 20 mg tablet 20 mg PO BID #10 tabs [id number]-wdpnttkxwykxj-mnmzfmsk 1 cap PO Q4-6H PRN h eadache #10 10/30/24 50 mg-300 mg-40 mg capsule caps (Fioricet) methylprednisolone 4 mg tablets in 4 mg PO DAILY #21 e a 10/12/25 a dose pack (Medrol (Jem)) Allergies Allergy/AdvReac Type Severity Reaction Status Date / Time ibuprofen (From MOTRIN) Allergy Severe ANAPHYLAXIS Verified 10/12/25 09:49 sulfamethoxazole (From Allergy Mild Vomiting Verified 10/12/25 09:49 Bactrim) trimethoprim (From Bactrim) Allergy Mild Vomiting Verified 10/12/25 09:49 Review of Systems 2 Constitutional: Constitutional: Reports as per [facility] Social History Social History Alcohol intake: never Patient Tobacco Use Status: Never used Tobacco Advance Directives: No Advance Directives Information Provided: Yes Do you have a plan to hurt others: No Plan Current occupational status: employed 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 ?CV: RRR, no obvious murmurs appreciated, patient has reproducible discomfort bilaterally right over the costochondral junction, radial pulses +2 bilaterally ? ?Resp: ?No wheezing rales rhonchi no stridor moving air well ? Abd: ?Bowel sounds are present, no tenderness no rebound no rigidity ? ?MSK: FROM, strength 5/5 all extremities ? Skin: Warm, dry, intact, no lower extremity edema ? ?Neuro: ?Alert and oriented x3, moving upper and lower extremities symmetrically, no obvious facial asymmetry noted, cranial nerves 2-12 intact Vital Signs: Vital Signs: Last Vital Signs Temp 97.7 F 10/12/25 11:39 Pulse 70 10/12/25 11:39 Resp 18 10/12/25 10:00 BP 130/58 L 10/12/25 11:39 Pulse Ox 98 10/12/25 11:39 O2 Del Method Room Air 10/12/25 11:39 BMI result Body Mass Index 21.0 Medications Administered Discontinued Medications Generic Name Dose Route Start Last Admin Trade Name Freq PRN Reason Stop Dose Admin Dexamethasone 6 mg 10/12/25 11:26 10/12/25 11:30 Dexamethasone 6 Mg Tablet PO 10/12/25 11:27 6 mg ONCE ONE Administration Medical Decision Making Medical Decision Making [facility] Narrative: 11:30 AM 10/12/2025 (Dr. Javon Briggs): Patient is presenting with clinically and as she is describing it costochondritis pain, giving her age we will workup for ACS, pneumonia, pneumothorax, no hypoxia or tachycardia no risk factors for PE elicited did not feel further workup either with a D-dimer or CT angio is indicated, this is not severe pain radiating to the back to suspect aortic dissection, patient is not able to take anti-inflammatories has been taking Tylenol which improves her pain, after workup is complete and if it is negative I will plan to discharge her with steroids for inflammation Differential Diagnosis Differential Diagnoses: The differential diagnosis associated with the presentation includes (ACS, pneumothorax, aortic dissection, PE, Boerhaave syndrome) Admission/Observation Consideration of admission/observation: Escalation of care including admission/observation considered Lab Data [facility] Lab Attestation statement: I reviewed the patient's lab results. 10/12/25 10:08 10/12/25 10:08 Labs: Lab Results 10/12/25 Range/Units 10:08 WBC 5.5 (4.8-10.8) X10*3/uL RBC 4.30 (4.20-5.50) X10*6/uL Hgb 12.5 (12.0-16.0) g/dl Hct 38.3 (37.0-47.0) % MCV 89.1 (80.0-98.0) fL MCH 29.1 (27.0-33.0) pg MCHC 32.6 (31.0-35.0) g/dl RDW 13.7 (11.0-16.0) % Plt Count 227 (160-400) X10*3/uL MPV 10.0 (9.4-12.3) fL Immature Gran % (Auto) 0.2 (0.0-0.4) % Neut % (Auto) 59.8 (45-73) % Lymph % (Auto) 30.2 (20-40) % [place] % (Auto) 7.5 (2-11) % Eos % (Auto) 1.8 (0-4) % Baso % (Auto) 0.5 (0-2) % Lymph # (Auto) 1.7 (1.2-4.9) X10*3/uL [place] # (Auto) 0.4 (0.1-1.2) X10*3/uL Eos # (Auto) 0.1 (0.0-0.4) X10*3/uL Baso # (Auto) 0.0 (0.0-0.2) X10*3/uL Abs Immat Gran (auto) 0.01 (0.00-0.03) X10*3/uL Absolute Neuts (auto) 3.3 (2.0-8.3) x10*3/uL Absolute Nucleated RBC 0.000 (0.0-0.012) X10*3/uL Nucleated RBC % (auto) 0.0 (0.0-0.2) /100WBC Sodium 140 (135-145) mmol/L Potassium 4.4 (3.3-5.1) mmol/L Chloride 108 (96-108) mmol/L Carbon Dioxide 24 (22-29) mmol/L Anion Gap 12 (12-20) BUN 14 (9-16) mg/dL Creatinine 0.79 (0.5-1.4) mg/dL Estim Creat Clear Calc 64.2 Estimated GFR > 60 Random Glucose 104 (60-115) mg/dL Calcium 9.2 (8.4-10.2) mg/dL Troponin I High Sens < 2.7 (<3.5-17.0) ng/L Independent Interpretation I performed an independent interpretation of an: EKG (85 beats per minute otherwise normal ECG without dysrhythmia, AV micha blocks or ST-T changes to suspect underlying ACS, my independent interpretation) and Plain X-Ray (My independent chest xray interpretation: Lungs: Lungs are clear bilaterally without evidence of focal consolidation, pleural effusion, or pneumothorax. Cardiac silhouette is unremarkable, no obvious mediastinal widening, no obvious bony abnormalities such as fractures. Impression: Normal chest X-r) Radiology Impression Discussion of test interpretation with radiology: I have reviewed the radiologist's reading. Prescription Management I considered prescription management with: Pain Medication Discharge Plan Discharge Clinical Impression: Chest pain, precordial, Costochondritis Instructions: Chest Pain (ED), Costochondritis (ED) Additional Instructions: Based on your symptoms my physical exam, and your workup your pain is most likely due to costochondritis or inflammation of the ribcage area, of course that is a diagnosis of exclusion and we would like to make sure primarily that this is not related to some issues with the heart or lungs, you had a chest x- ray that did not reveal any abnormalities, unremarkable EKG, your cardiac enzymes were reassuring and the rest of the blood work was completely unremarkable, unfortunately you are not able to take anti-inflammatories which is really the treatment for this Tylenol we will help with the pain but Motrin is something that would actually address the inflammation so we are going to start steroids, 1st dose given in the ER thereafter continue as per prescription these are low dose take it with food and if you have worsening symptoms concerns please do not hesitate to come back to emergency department for re-evaluation Prescriptions: New methylprednisolone [Medrol (Jem)] 4 mg tablets,dose pack 4 mg PO DAILY Qty: 21 0RF Rx Instructions: Day 1: 24 mg on day 1 administered as 8 mg before breakfast, 4 mg after lunch, 4 mg after supper, and 8 mg at bedtime or 24 mg as a single dose or divided into 2 or 3 doses upon initiation. Day 2: 20 mg on day 2 administered as 4 mg before breakfast, 4 mg after lunch, 4 mg after supper, and 8 mg at bedtime. Day 3: 16 mg on day 3 administered as 4 mg before breakfast, 4 mg after lunch, 4 mg after supper, and 4 mg at bedtime. Day 4: 12 mg on day 4 administered as 4 mg before breakfast, 4 mg after lunch, and 4 mg at bedtime. Day 5: 8 mg on day 5 administered as 4 mg before breakfast and 4 mg at bedtime. Day 6: 4 mg on day 6 administered as 4 mg before breakfast. No Action ygsojukdzl-wtmnkmayvscrf-jrnl [Fioricet] 50-300-40 mg capsule 1 cap PO Q4-6H PRN (Reason: headache) Qty: 10 0RF albuterol sulfate 90 mcg/actuation HFA aerosol inhaler inhalation alendronate 70 mg tablet 70 mg PO QWEEK prednisone 20 mg tablet 20 mg PO BID Qty: 10 0RF benzonatate 100 mg capsule 100 mg PO BID-TID PRN (Reason: cough) Qty: 30 0RF albuterol sulfate 90 mcg/actuation HFA aerosol inhaler 2 puff inhalation Q6H PRN (Reason: shortness of breath or wheezing) Qty: 6.7 0RF Referrals: Jud Martinez MD [Primary Care Provider, Internal Medicine] - 2 weeks Clinical Impression: Costochondritis; Chest pain, precordial Print Language: German
--- OUTSIDE RECORDS SUMMARY | 2025-10-12 11:11 | XMS_ITS | Encounter Summary ---
Author Organization [facility] Address [address] [place] [phone] Phone Care Team Providers Care Horticultural Farm Manager Name Role Phone [place] South CANAL BOAT CAPTAIN Unavailable [phone] [place] South CANAL BOAT CAPTAIN Primary Care Provider Jud Martinez Primary Care Provider Encounter Details Date Type Department Care Team (Late st Contact Info) Description 12/28/2023 Nurse Triage [facility] Internal Medicine [address] [place] [address] [place] South, CANAL BOAT CAPTAIN [address] [facility] [address] [place] [address] [email or web address] Social History Tobacco Use Types Packs/Day Years Used Date Smoking Tobacco: Never Smokeless Tobacco: Never Alcohol Use Standard Drinks/Week Comments No 0 (1 standard drink = 0.6 oz pur e alcohol) Child or Family Care Answer Date Record ed Do you have problems with on e of the following making it difficult for you to work, study, or receive health care? No 12/04/2023 Education Answer Date Recorded Are you interested in help w ith more adult education (for example, completing high school, GED, job training, learning the [place] language, technical skills, or developing parenting skills)? No 12/04/2023 Are you concerned about learning? Not on file 12/04/2023 No 12/04/2023 Yes 12/04/2023 Food Answer Date Recorded Within the past 6 months we worried whether our food would run out before we got money to buy more. Never True 12/04/2023 Within the past 6 months the food we bought just didn't last and we didn't have enough money to get more. Never True Residential Stability Answer Date Recor ded What is your housing situation today? I have dedrick buenrostro 12/04/2023 How many times have you move d in the past 12 months? Zero (I did not move) 12/04/2023 Paying for Meds Answer Date Recorded Do you have trouble paying for medicines? No 12/04/2023 Paying Utility Bills Answer Date Record ed Do you have trouble paying your heating or elect ricity bill? No 12/04/2023 Transportation Answer Date Recorded Has the lack of transportati on kept you from medical appointments or from getting medications? No 12/04/2023 Unemployment Answer Date Recorded Are you currently unemployed or working on a part-time or temporary basis, and looking for work? No 10/04/2022 Digital Access Answer Date Recorded No 12/04/2023 Yes 12/04/2023 Do you have reliable internet access at home? Ye s 12/04/2023 Do you have a device (e.g., phone, tablet, computer) with a working camera? Yes 12/04/2023 Intimate Partner Violence Answer Date R ecorded Denied Basic Needs Not on file 12/07/2023 In the past 12 months have y ou been in a relationship with a person who hurts, threatens, or tries to control you? No 12/07/2023 Worried food would run out Not on file 12/07 In the past 12 months have y ou been in a relationship with a person who hurts, threatens, or tries to control you? No 12/07/2023 Comments Unknown Sex and Gender Information Value Date Recorded Sex Assigned at Not on file Legal Sex Female 9:52 PM EDT Gender Identity Not on file Sexual Orientation Not on file documented as of this encounter Plan of Treatment Upcoming Encounters Date Type Department Care Team (Late st Contact Info) Description 12/11/2025 8:15 AM EST Office Visit [facility] [address] [place] [address] Jud Martinez [address] [facility] [place] [address] [email or web address] 04/28/2026 8:20 AM EDT Office Visit [facility] [place] [address] [address] Hermelinda Blanco MD [address] [place] [id number] documented as of this encounter Procedures Procedure Name Priority Date/Time Associated Diagnosis Comments SARS-COV-2 (COVID-19) AG BINAXNOW Routine 12/22/2023 documented in this encounter Results * (ABNORMAL) SARS-CoV-2 (COVID-19) Antigen (BinaxNOW) (12/22/2023) Source Nasal swab SARS-CoV-2 (COVID-19) antigen POSITIVE - Internal QCs acceptable(A ) NEGATIVE - Internal QCs acceptable 12/22/2023 us Historical Provider LAB POCT ENTER/EDIT ORDER JIM Final Result documented in this encounter Visit Diagnoses Not on filedocumented in this encounter Additional Health Concerns Infection Onset Date Last Indicated Resolved Time COVID-19 12/22/2023 12/22/2023 01/12/2024 1:22 AM EST Assessment Noted Time PHQ-2 Depression Total Score: 0 12/07/19 10:26 AM EST documented as of this encounter Care Teams Horticultural Farm Manager Relationship Specialty Start Date End Date [place] NP PCP - General 10/09/17 01/30/24 Jud Martinez [address] [place] [address], [address] [place] [address] PCP - General Family Medicine 01/31/24 [place] South NP [email or web address] Historical LMR Provider 09/13/17 documented as of this encounter Additional Source Comments The information contained in this document represents components of the legal health record. It is not the complete legal health record.[facility]
--- OUTSIDE RECORDS SUMMARY | 2025-10-12 11:11 | XMS_ITS | Clinical Summary ---
Author Organization [facility] Address [address] [address] Phone Care Team Providers Care Vine Pruner Name Role Phone [place] CHILD WELFARE SOCIAL WORKER Unavailable [phone] Jud Martinez Primary Care Provider Allergies Active Allergy Reactions Criticality Noted Date Comments Adhesive 05/13/2022 Other reaction(s): rash Sulfamethoxazole-Trime thoprim Nausea and/or Vomiting 05/08/2018 Guaifenesin Palpitations Low 02/17/2020 Ibuprofen Anaphylaxis High 05/08/2018 Medications magnesium 200 mg Tab Take 1 tablet by mouth daily. Active calcium carbonate-vitamin D3 1,500 mg (600 mg elemental)-200 units Tab Take 1 tablet by mouth daily. Active fexofenadine (SANJUANITA) 180 MG tablet Take 180 mg by mouth daily as needed. Active acyclovir (ZOVIRAX) 5 % creamIndications: History of cold sores Apply topically 5 (five) times a day. Used prn 5 g 1 4 Active albuterol 90 mcg/actuation inhaler Inhale 2 puffs into the lungs every 6 (six) hours as needed for wheezing. 18 g 1 4 Active estradioL (CLIMARA) 0.0375 mg/24 hrIndications:Age -related osteoporosis without current pathological fracture Place 1 patch onto the skin once a week. 24 patch 3 5 Active progesterone (PROMETRIUM) 100 mg capsuleIndication s:Age-related osteoporosis without current pathological fracture TAKE ONE CAPSULE BY MOUTH EVERY DAY 90 capsule 3 5 Active Active Problems Problem Noted Date Diagnosed Date Annual physical exam 12/09/2024 Assessment & Plan (12/09/2024 8:55 AM EST): This is a 64 y.o. female who presents for a complete physical exam. Past medical history, surgical history, social history, family history and allergies reviewed and document in chart. -Blood pressure taken, no signs of hypertension. -General health screening appropriate for age reviewed -General nutrition recommendations reviewed: 5 servings of fruits and vegetables, adequate protein. -Exercise recommendations reviewed: 150 minutes of cardiovascular exercise weekly. At least two strength training sessions weekly for muscle mass and bone health. -Breast cancer screening discussed: Last mammogram: December 2023. Result: BIRADS 1. Any abnormal hx: no. Scheduled for January 16 at [facility]. -Colon cancer screening discussed: Last colonoscopy: Cologuard August 2024. Result: negative. Any abnormal hx: no. Due in 3 years, 2026. -Cervical cancer screening discussed: Last pap: 2021. Result: normal. Any abnormal hx: no. Has appointment January 2025 with lens grinder. Will be last pap, no further screening. -Smoking cessation: NA -Lung Cancer Screening: NA -Abdominal Aortic Aneurysm: NA -Osteoporosis screening discussed: Last DEXA: 2022 Result: osteoporosis. Did not tolerate Fosfomax. Sees endocrinology who has her on HRT. Due for DEXA, will schedule. -Prediabetes and Type 2 Diabetes Screening: Ordered -Hyperlipidemia screening: Ordered -Cardiovascular disease prevention (statin): ASCVD score: Will calculate -STI screening: Declines -One lifetime HIV and Hep C test: Negative -IPV screen: negative -PHQ2: 0, GAD7: 0 -ADLS: No limitations -Immunizations reviewed: Due for flu and covid- declines. PCV- will think about it. -Labs as ordered -Regular vision and dental exams recommended: UTD -Dermatology/sunscreen: Wears sunscreen regularly, does not see dermatology. -Calcium with Vitamin D recommendations reviewed: 800 international units of vitamin D daily and 1200 mg elemental calcium in post menopausal women -Living will/MOLST/HCP: Paperwork provided. HCP is her Ari. -Annual physical exam recommended Acute cystitis without hematuria 06/11/2024 Assessment & Plan (06/11/2024 12:34 PM EDT): Symptoms are consistent with a urinary tract infection she has a trace amount of blood on her urine. I will treat her empirically. If symptoms fail to improve as expected within about 48 hours, I would recheck a urine specimen with culture. Vitamin D deficiency 05/02/2024 Assessment & Plan (04/28/2025 9:48 AM EDT): Will check level. Assessment & Plan (05/02/2024 9:01 AM EDT): Takes a daily vitamin supplements at 1000 units daily. Osteoarthritis 05/02/2024 Assessment & Plan (05/02/2024 9:19 AM EDT): Sometimes flares up. Recommend Voltaren gel (she has used before without reaction in the setting of an ibuprofen allergy), arnica gel, CBD oil, cream or gummy. Age-related osteoporosis wit hout current pathological fracture 05/08/2018 Assessment & Plan (04/28/2025 9:52 AM EDT): 65 y.o. woman with osteoporosis on bone density. No clinical hx fracture but has evidence of old rib fx on imaging. She had evaluation for secondary causes of osteoporosis done by Dr. Hayes in the past w/o finding. Mother w/ osteoporosis/fracture. She had been on HRT for years & was transitioned to alendronate by endo @ [facility] but did not tolerate oral alendronate & is reluctant to consider parenteral rx given mother's hx of issue with them in the past. She feels better physically & emotionally back on HRT since last year (2023). She has had no interval falls or fractures. She is active & getting a good amount of calcium in via supplement with some via diet. We again reviewed risks/benefits of HRT & will continue to monitor/discuss. Bone density appears fairly stable based on report, will obtain full report/images. Assessment & Plan (05/02/2024 9:04 AM EDT): Stable, last bone density test showed improvement. Did not tolerate Fosfomax. Sees endocrinology who has her on HRT. No history of fractures per patient though per CT chest some old rib fractures. Gets good dietary calcium and calcium & vitamin D supplements. Does strength training and walks up to 7 miles a day. Will repeat bone density early next year. Assessment & Plan (05/01/2024 3:42 PM EDT): 64 y.o. woman with osteoporosis on bone density. No hx fracture. She had evaluation for secondary causes of osteoporosis done by Dr. Hayes in the past. Mother w/ osteoporosis/fracture. She did not tolerate oral alendronate & is reluctant to consider parenteral rx given mother's hx of issue with them in the past. She would like to resume HRT as felt well on it. She is aware of risks (including clotting/breast CA) & benefits & has no contraindications. Will resume rx. Reviewed normal bone physiology across the lifespan. Reviewed role of adequate calcium & vitamin D, weight-bearing exercise, avoiding falls and pharmacologic rx with risks/benefits. Advised her to refer to UpToDate patient information @ calcium & vitamin D & prevention and treatment of osteoporosis, beyond the basics for additional information. Will repeat bone density early next year, ideally @ same facility/on same machine. 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 Is conscientious about foods and stressors that trigger. Occur around 2 x a year. Seasonal allergies 05/08/2018 Resolved Problems Problem Noted Date Diagnosed Date Resolved Date Abnormal CXR 01/17/2024 05/02/2024 Assessment & Plan (01/17/2024 9:53 AM EST): Here for abnormal CXR on 01/[address] [facility] urgent care. CXR suggested possibly scarring, vrs occult bronchogenic carcinoma She has not s/s, and no tob use hx. Will order urgent chest CT. FD to help me book this. She is aware that if she has not heard by 01/24 to call us back Hx of migraines 10/01/2020 05/02/2024 High serum vitamin D 05/15/2019 024 Immunizations Immunization Administration Dates Next Due COVID-19 (Pre-09/18) Pfizer Vaccine, mRNA, PF ,02/17/2021 Td, unspecified formulation 03/21/2007 Tdap 04/28/2016,03/21/2007 Family History Medical History Relation Comments Diabetes type II Brother 1 Depression Brother 2 No Known Problems Brother 3 No Known Problems Daughter Heart disease Father Unsure what kind Kidney disease Father No Known Problems Maternal Grandfather Hypothyroidism Maternal Grandmother Osteoporosis Maternal Grandmother Heart failure Mother Hypertension Mother Osteoporosis Mother Stroke Mother tia No Known Problems Paternal Grandfather No Known Problems Paternal Grandmother Diabetes type II Sister 1 No Known Problems Sister 2 No Known Problems Son Relation Status Comments Brother 1 Alive Brother 2 Alive Brother 3 Alive Daughter Alive Father (Age 83) Maternal Grandfather Maternal Grandmother Mother Alive Lives alone Paternal Grandfather Paternal Grandmother Sister 1 Alive Sister 2 Alive Son Alive Social History Tobacco Use Types Packs/Day Years Used Date Smoking Tobacco: Never Smokeless Tobacco: Never Tobacco Cessation:Counseling Given: Not Answered Alcohol Use Standard Drinks/Week Comments No 0 (1 standard drink = 0.6 oz pur e alcohol) Child or Family Care Answer Date Record ed Do you have problems with on e of the following making it difficult for you to work, study, or receive health care? No 12/02/2024 Education Answer Date Recorded Are you interested in help w ith more adult education (for example, completing high school, GED, job training, learning the [place] language, technical skills, or developing parenting skills)? No 12/04/2023 Are you concerned about learning? Not on file 12/04/2023 No 12/04/2023 Yes 12/04/2023 Food Answer Date Recorded Within the past 6 months we worried whether our food would run out before we got money to buy more. Never True 12/02/2024 Within the past 6 months the food we bought just didn't last and we didn't have enough money to get more. Never True Residential Stability Answer Date Recor ded What is your housing situation today? I have dedrick sing 12/02/2024 How many times have you move d in the past 12 months? Zero (I did not move) 12/02/2024 Paying for Meds Answer Date Recorded Do you have trouble paying for medicines? No 12/02/2024 Paying Utility Bills Answer Date Record ed Do you have trouble paying your heating or elect ricity bill? No 12/02/2024 Transportation Answer Date Recorded Has the lack of transportati on kept you from medical appointments or from getting medications? No 12/02/2024 Unemployment Answer Date Recorded Are you currently unemployed or working on a part-time or temporary basis, and looking for work? No 10/04/2022 Digital Access Answer Date Recorded No 12/02/2024 Yes 12/02/2024 Do you have reliable internet access at home? Ye s 12/02/2024 Do you have a device (e.g., phone, tablet, computer) with a working camera? Yes 12/02/2024 Intimate Partner Violence Answer Date R ecorded Denied Basic Needs Not on file 12/02/2024 In the past 12 months have y ou been in a relationship with a person who hurts, threatens, or tries to control you? No 12/02/2024 Worried food would run out Not on file 12/02 In the past 12 months have y ou been in a relationship with a person who hurts, threatens, or tries to control you? No 12/02/2024 Comments Unknown Sex and Gender Information Value Date Recorded Sex Assigned at Not on file Legal Sex Female 9:52 PM EDT Gender Identity Not on file Sexual Orientation Not on file Last Filed Vital Signs Vital Sign Reading Time Taken Comments Blood Pressure 114/66 04/28/2025 8:41 AM EDT Pulse 70 04/28/2025 8:41 AM EDT Temperature 36.2 C (97.2 F) 12/09/2024 8:00 AM EST Respiratory Rate 16 04/30/2024 11:19 AM EDT Oxygen Saturation 98% 04/28/2025 8:41 AM EDT Inhaled Oxygen Concentration - - Weight 57.8 kg (127 lb 6.4 oz) 04/28/2025 8:41 A M EDT Height 167.6 cm (5' 6 ) 04/28/2025 8:41 AM EDT Body Mass Index 20.56 04/28/2025 8:41 AM EDT Plan of Treatment Upcoming Encounters Date Type Department Care Team (Late st Contact Info) Description 12/11/2025 8:15 AM EST Office Visit [facility] Family Medicine [address] [place] [address] Jud Martinez [address] [facility] [place] [address] [email or web address] 04/28/2026 8:20 AM EDT Office Visit [facility] Endocrin[facility] [place] [address] [address] Hermelinda Blanco MD [address] [facility] 3rd [place] [address] [email or web address] Health Maintenance Due Date Last Done Comments FIT TEST 2003 FOBT 2003 SIGMOIDOSCOPY 2003 VIRTUAL COLONOSCOPY 2003 PNEUMOCOCCAL VACCINES (50+ years) (1 of 1 - PCV) 02/05/2008 COLONOSCOPY 03/14/2023 03/14/2013 MAMMOGRAM 01/04/2025 01/04/2023, 05/2022, 11/29/2018, Additional history exists INFLUENZA VACCINE (#1) 2025 COVID-19 VACCINE ( season) 2025 03/10/2021, 02/17/2021 DEPRESSION SCREENING 12/02/2025 12/02/2024 Adult Td,Tdap Booster 04/28/2026 04/28/2016 , 03/21/2007, 03/21/2007 PAP SMEAR 12/06/2026 12/06/2021, 10/27, 10/25/2016 FOLLOW UP BONE DENSITY TESTING 03/25/2027 03/25/2025, 04/30/2024, 01/04/2023, Additional history exists COLOGUARD 09/26/2027 09/26/2024 COLORECTAL CANCER SCREENING 09/26/2027 LIPID PANEL 01/14/2030 01/14/2025, 12/06/2022, 10/07/2020, Additional history exists RSV VACCINE (1 - 1-dose 75+ series) 2033 ZOSTER VACCINES (1 of 2) 05/11/2060 Pos tponed from 02/05/2008 (Not Clinically Appropriate) HEPATITIS C SCREENING Completed 10/07/2020 SMOKING STATUS SCREENING (Once After 26 Yrs) Completed 12/09/2024 OSTEOPOROSIS SCREENING INITIAL (ONE-TIME) Completed 03/25/2025, 04/30/2024, 01/04/2023, Additional history exists HEPATITIS A VACCINES Aged Out No long er eligible based on patient's age to complete this topic HIB VACCINES Aged Out No longer eligi ble based on patient's age to complete this topic IPV VACCINES Aged Out No longer eligi ble based on patient's age to complete this topic MENINGOCOCCAL VACCINES (ACWY) Aged Out No longer eligible based on patient's age to complete this topic MENINGOCOCCAL VACCINES (B) Aged Out N o longer eligible based on patient's age to complete this topic Medical Devices Not on file Procedures Procedure Name Priority Date/Time Associated Diagnosis Comments DEXA SCAN Routine 03/25/2025 11:01 AM EDT LIPID PANEL Routine 01/14/2025 8:14 AM EST Annual physical exam MAMMOGRAPHY Routine 01/04/2023 12:58 PM EST PAP SMEAR FOR RESULT ENTRY ONLY Routine 12/06/2021 HEPATITIS C ANTIBODY, QUALITATIVE Routine 10/07/2020 8:01 AM EST Routine general medical examination at a [facility] care facility from Last 3 Months or Most Recently Relevant to Health Maintenance Results * DEXA SCAN (03/25/2025 11:01 AM EDT) us Historical Provider HEALTH MAINTENANCE Final Result * (ABNORMAL) Lipid panel (01/14/2025 8:14 AM EST) HDL 87 mg/dL [facility] Comment: Interpretation <40 mg/dL: Low HDL cholesterol (major risk factor for CHD) Greater than or equal to 60 mg/dL: High HDL cholesterol ( negative risk factor for CHD) HDL - cholesterol is affected by a number of factors, e.g. smoking, excerise, hormones, sex and age. CHOLESTEROL 181 0 - 240 mg/dL [facility] TRIGLYCERIDES 56 30 - 160 mg/dL [facility] LDL 83 50 - 129 mg/dL [facility] Comment: LDL levels in terms of risk for coronary heart disease: <100 mg/dL: Optimal 100-129 mg/dL: Near or above optimal 130-159 mg/dL: Borderline high 160-189 mg/dL: High >190 mg/dL: Very High CARDIAC RISK RATIO 2.1(L) 3.3 - 4.4 C [facility] Blood 01/14/2025 8:14 AM EST 01/14/2025 8:17 AM EST us Jud Martinez LAB BLOOD BKR ORDERABLES Fi nal Result Performing Organization Address [facility] Co de Phone Number [address] [address] * HM MAMMOGRAPHY FOR RESULT ENTRY ONLY (01/04/2023 12:58 PM EST) Historical Provider HEALTH MAINTENANCE Final Result * HM PAP SMEAR FOR RESULT ENTRY ONLY (12/06/2021) Historical Provider HEALTH MAINTENANCE Edited Result - Final * Hepatitis C antibody, qualitative (10/07/2020 8:01 AM EST) HCV NON-REACTIV E NON-REACTI VE [facility] Blood 10/07/2020 8:01 AM EST 10/07/2020 8:05 AM EST us [place] NP LAB BLOOD BKR ORDERABLES Final Result Performing Organization Address City/[facility]/ZIP Co de Phone Number [address] [address] from Last 3 Months or Most Recently Relevant to Health Maintenance Insurance [employer] A [facility] MEDICARE A [facility] A [facility] MEDICARE A [facility] FEDERAL MEDICARE A Care Teams Vine Pruner Relationship Specialty Start Date End Date Jud Martinze [address] [place] [address], [address] [place] [address] PCP - General Family Medicine 01/31/24 [place] NP Historical LMR Provider 09/13/17 Additional Source Comments The information contained in this document represents components of the legal health record. It is not the complete legal health record.[facility]
[2025-10-12 11:39] VITALS: BP 130/58; PULSE 70; TEMP 36.5; O2SAT 98
[2025-10-12 12:25] VITALS: BP 130/58; PULSE 70; RESP 18; TEMP 36.5; O2SAT 98
== END 2025-10-12 12:26 | disposition home or self-care (01) ==
PROVIDERS: Emergency Provider Emergency Medicine; PCP Student in an Organized Health Care Education/Training Program
DX: R07.2 Precordial pain (principal); M94.0 Chondrocostal junction syndrome [Tietze]; Z79.899 Other long term (current) drug therapy
CPT/HCPCS: 36415; 71046; 80048; 84484; 85025; 93005; 99284; J8540

== ENCOUNTER → 2025-10-12 09:40 | Outpatient (BNV) | payer BC, SELFPAY | PROVIDERS: Emergency Provider Emergency Medicine; PCP Student in an Organized Health Care Education/Training Program; Visit Provider Internal Medicine | DX: R94.31 Abnormal electrocardiogram [ECG] [EKG] (principal); R07.9 Chest pain, unspecified | CPT/HCPCS: 93010 ==

== ENCOUNTER → 2025-10-12 11:26 | Outpatient (BNV) | payer BC, SELFPAY | PROVIDERS: Emergency Provider Emergency Medicine; PCP Student in an Organized Health Care Education/Training Program; Visit Provider Radiology Diagnostic Radiology | DX: J98.4 Other disorders of lung (principal) | CPT/HCPCS: 71046 ==